=== PATIENT | male | born 1990 | race Caucasian/White ===

== ENCOUNTER 2020-07-17 19:10 | Emergency (ER) | payer OTHER ==
[~2020-07-17] VITALS: Ht 182.9 cm; Wt 90.7 kg
--- OUTSIDE RECORDS SUMMARY | 2020-07-17 21:30 | XMS ---
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 Beatris has no Care Guidelines for this patient. Adelita VISIT COUNT (12 MO.) 1 ALYSSA Denis TOTAL 1 NOTE: Visits indicate total known visits. ED/UCC VISIT TRACKING (12 MO.) 07/17/2020 19:11 ALYSSA [facility]itt [place] TYPE: Emergency COMPLAINT: - URINE PROBLEM INPATIENT VISIT TRACKING (12 MO.) No inpatient visits to display in this time frame [email or web address]
== END 2020-07-17 21:14 | disposition home or self-care (01) ==
LOC: ED 19:10
DX: N34.2 Other urethritis (principal)
CPT/HCPCS: 81001; 87491; 87591; 96372; 99283; J0696

== ENCOUNTER → 2020-11-20 | Emergency (ER) | payer OTHER ==
[~2020-11-20] VITALS: Ht 182.9 cm; Wt 90.7 kg
--- NOTE | 2020-11-21 16:16 | EKG ---
[facility] [address] [place], [place] [address] Signed Normal sinus rhythm Rightward axis Borderline ECG No previous ECGs available Confirmed by BRENDA ALEXANDER DO ([id number]) on 11/21/2020 4:16:30 PM Electronically Signed By: BRENDA ALEXANDER DO 11/21/20 1616 PATIENT NAME: CANDIDO CHO Electrocardiogram DATE OF : 89 PHYSICIAN: BRENDA ALEXANDER DO REPORT #: [id number] REPORT IS CONFIDENTIAL AND NOT TO BE RELEASED WITHOUT AUTHORIZATION
== END ==
LOC: ED 14:17
DX: R07.9 Chest pain, unspecified (principal); G25.3 Myoclonus; F17.200 Nicotine dependence, unspecified, uncomplicated
CPT/HCPCS: 80053; 81001; 83605; 83735; 84484; 85025; 93005; 93010; 99285-25

== ENCOUNTER 2020-11-26 21:00 | Emergency (ER) | payer OTHER ==
[~2020-11-26] VITALS: Ht 190.5 cm; Wt 92.9 kg
--- OUTSIDE RECORDS SUMMARY | 2020-11-26 21:04 | XMS ---
PreManage Notification: CANDIDO CHO Security Durability Technician Events No recent Security Events currently on file CRITERIA MET - [facility] - [facility] - 2 Visits in 30 Days CARE PROVIDERS ZAIRA RAY Physician Business Process Representative 07/20/2020-Current PHONE: [phone] [facility] Clinic[facility]: Federally Qualified 12/30/2019-[facility] ([facility]) HEALTH - N PHONE: [phone] FIGUEROA ELIZABETH Nurse Practitioner: Family Current PHONE: [phone] Beatris has no Care Guidelines for this patient. E.D. VISIT COUNT (12 MO.) [address] [facility] TOTAL 3 NOTE: Visits indicate total known visits. ED/UCC VISIT TRACKING (12 MO.) 11/26/2020 21:00 [facility]YSSA [facility] [place] TYPE: Emergency COMPLAINT: - LT HAND INJURY 11/20/2020 14:18 ALYSSA Merritt [place] TYPE: Emergency COMPLAINT: - WITHDRAWALS DIAGNOSES: - Nicotine dependence, unspecified, uncomplicated - Myoclonus - Chest pain, unspecified 07/17/2020 19:11 ALYSSA Merritt [place] TYPE: Emergency COMPLAINT: - URINE PROBLEM DIAGNOSES: - Other urethritis INPATIENT VISIT TRACKING (12 MO.) No inpatient visits to display in this time frame [id number]
== END 2020-11-26 22:30 | disposition home or self-care (01) ==
LOC: ED 21:00
PROC: 0HQGXZZ Repair Left Hand Skin, External Approach (ICD-10-PCS; principal; 2020-11-26)
DX: S61.432A Puncture wound without foreign body of left hand, initial encounter (principal); W22.8XXA Striking against or struck by other objects, initial encounter; F17.200 Nicotine dependence, unspecified, uncomplicated
CPT/HCPCS: 12001; 73130; 90471; 90715; 99283-25

== ENCOUNTER 2021-03-03 23:42 | Observation (INO) | payer OTHER ==
[~2021-03-03] VITALS: Ht 182.9 cm; Wt 96.2 kg
--- OUTSIDE RECORDS SUMMARY | 2021-03-03 23:44 | XMS ---
PreManage Notification: CANDIDO CHO Security Energy Derivatives Trader Events No recent Security Events currently on file CRITERIA MET - PDMP CARE PROVIDERS ZAIRA RAY Physician Performance Improvement Consultant 07/20/2020-Current PHONE: [phone] [facility] Clinic/Center: Federally Qualified 12/30/2019-[facility] ([facility]) HEALTH - PHONE: [phone] FIGUEROA ELIZABETH Nurse Practitioner: Family Current PHONE: [phone] Beatris has no Care Guidelines for this patient. Care History Medical/Surgical 11/30/2020 [facility] Recommendation: - PLEASE REVIEW PDMP - BEATRIS - USE EXTREME CAUTION IN GIVING NARCOTICS. - Avoid Discharge Narcotic prescriptions if at all possible. Physician discretion. EHongDHong VISIT COUNT (12 MO.) 4 ALYSSA Denis TOTAL 4 NOTE: Visits indicate total known visits. ED/UCC VISIT TRACKING (12 MO.) 03/03/2021 23:42 ALYSSA [facility]itt [place] TYPE: Emergency COMPLAINT: - RT ARM PROBLEM 11/26/2020 21:00 ALYSSA [facility]itt OR TYPE: Emergency COMPLAINT: - LT HAND INJURY DIAGNOSES: - Nicotine dependence, unspecified, uncomplicated - Striking against or struck by other objects, initial encounter - Puncture wound without foreign body of left hand, initial encounter 11/20/2020 14:18 AL[facility]SS[facility] [place] TYPE: Emergency COMPLAINT: - WITHDRAWALS DIAGNOSES: - Nicotine dependence, unspecified, uncomplicated - Myoclonus - Chest pain, unspecified 07/17/2020 19:11 ALYSSA Merritt [place] TYPE: Emergency COMPLAINT: - URINE PROBLEM DIAGNOSES: - Other urethritis INPATIENT VISIT TRACKING (12 MO.) No inpatient visits to display in this time frame [email or web address]
--- NOTE | 2021-03-04 03:28 | NUR ---
RECEIVED PHONE REPORT FROM [place]URCH ADMINISTRATORANAI VILLAGOMEZ.
--- NOTE | 2021-03-04 03:42 | NUR ---
NOTED A 3RD LACTIC BLOOD WAS ORDERED, DISCUSSED WITH ANAI PRITCHETT IN ED. ORDER DC'D HIS LACTIC WAS RESULTED AT 0.6 @ 0258, NO "NEED FOR A 3RD LACTIC".
--- NOTE | 2021-03-04 04:00 | NUR ---
ASSESSMENT, VS AND I&O COMPLETED. GCS 15, A&O X4. LUNGS CLEAR, HEART TONES REGULAR WITH TELE HR SR @ 80. IVs WNL, CDI, FLUSHED WELL. ABD SOFT, NONTENDER, BOWEL TONES ACTIVE.CMS INTACT. RIGHT HAND HAS GENERALIZED EDEMA WITH SMALL WOUND OPEN TO AIR, SCANT PURULENT DRAINAGE. BOTH HANDS HAVE SCATTERED ABRASIONS. CHIN AND NOSE HAVE SMALL WOUNDS, OPEN TO AIR, DRY. REDNESS ON RIGHT WRIST AND FOREAM NOTED. ICE WATER AND SNACKS PROVIDED. NO OTHER NEEDS AT THIS TIME. CALL LIGHT IN REACH.
[2021-03-04] MEDS ORDERED: SULFAMETHOXAZO1 EAC1 (05:13)
[2021-03-04] MEDS ORDERED: MUPIROCIN15 GM (05:13)
[2021-03-04] MEDS ORDERED: CLINDAMYCIN HC300 MG (05:13)
[2021-03-04] MEDS ORDERED: AZITHROMYCIN250 MG (05:14)
[2021-03-04] MEDS ORDERED: PROPRANOLOL HCL10 MG (05:14)
--- NOTE | 2021-03-04 06:37 | NUR ---
VS AND I&O COMPLETED. PT RESTING IN BED, EYES CLOSED. LAB IN ROOM.
--- NOTE | 2021-03-04 07:30 | NUR ---
Report recieved from ANAI Flaherty. Pt restign in bed safely w/ eyes closed RR even and unlabored, call light in reach. White board updated.
--- NOTE | 2021-03-04 08:02 | NUR ---
Patient takes no home medications. He was prescribed Septra DS and mupirocin for hand abrasions but did not pick and shovel man prescriptions
--- NOTE | 2021-03-04 08:45 | NUR ---
PT SITTING UP IN BED EATING BREAKFAST. PT STATES HE IS ANXIOUS AND WANTS TO KNOW IF HE CAN GO HOME YET. PT VERY DROWSY BUT AWAKENS EASILY TO VOICE. VSS ON RA. MORNING MEDICATIONS ADMINISTERED PER PROVIDER ORDER AND MORNING ASSESMENT COMPLETED. PT ASKED IF THERE WAS A HOME THEATRE TECHNICIAN HE COULD USE FOR HIS PHONE. CALL LIGHT IN REACH NO OTHER NEEDS AT THIS TIME.
--- NOTE | 2021-03-04 09:00 | NUR ---
PROVIDER IN ROOM ASSBRENDAG PT.
[2021-03-04] MEDS ORDERED: DOXYCYCLINE HY100 MG PO (09:18)
--- NOTE | 2021-03-04 10:00 | NUR ---
IN TO PATIENT ROOM, PATIENT SLEEPING. PATIENT AWAKENS TO VOICE THOUGH FALLS BACK TO SLEEP EASILY. CASE MANAGEMENT ASSESSMENT COMPLETED THOUGH DIFFICULT PATIENT IS SLEEPY. PATIENT STATES HE LIVES AT HOME ALONE, BUT DOES HAVE A SON. PATIENT PREFERS TO DISCHARGE HOME. DEMOGRAPHIC INFORMATION VERIFIED. PER MD PATIENT TO DISCHARGE TODAY. NO CHANGES IN DISCHARGE PLAN PER CASE MANAGEMENT AT THIS TIME.
== END 2021-03-04 11:15 | disposition home or self-care (01) ==
LOC: ED 23:42 → MS 23:43
PROVIDERS: ADMIT Student in an Organized Health Care Education/Training Program; ATTEND Student in an Organized Health Care Education/Training Program
DX: A41.9 Sepsis, unspecified organism (principal); L03.113 Cellulitis of right upper limb; R65.20 Severe sepsis without septic shock; Z20.822 Contact with and (suspected) exposure to COVID-19; I10 Essential (primary) hypertension; F17.210 Nicotine dependence, cigarettes, uncomplicated; R00.0 Tachycardia, unspecified
CPT/HCPCS: 80053; 83605; 85025; 96365; 96367; 99285-25; C9803; G0378; J0696; J3370; J7030; J7060; U0003